=== PATIENT | female | born 1985 | race African-American/Black ===

== ENCOUNTER 2016-07-11 12:56 | Emergency (ER) | payer OTHER ==
[~2016-07-11 12:56] MED LIST: ZOLOFT
== END 2016-07-11 19:12 | disposition left against medical advice (07) ==
LOC: ER 12:56
DX: R04.0 Epistaxis (principal); Z53.21 Procedure and treatment not carried out due to patient leaving prior to being seen by health care provider

== ENCOUNTER 2018-09-08 18:55 | Emergency (ER) | payer OTHER ==
[~2018-09-08] VITALS: Ht 165.1 cm; Wt 63.0 kg
[~2018-09-08 18:55] MED LIST changes: +FERR-71 PO; -ZOLOFT
[2018-09-08] MEDS ORDERED: SODIUM CHLORIDE 0.9% 500 ML IV ONE (22:15)
[2018-09-08 22:30] LABS: CLARITY URINE CLEAR (CLEAR); COLOR URINE YELLOW (YELLOW); KETONES URINE NEGATIVE (NEGATIVE); LEUKOCYTE ESTERASE URINE 2+ (NEGATIVE); NITRITE URINE NEGATIVE (NEGATIVE); OCCULT BLOOD URINE 2+ (NEGATIVE); PROTEIN URINE NEGATIVE (NEGATIVE); SPECIFIC GRAVITY URINE 1.002 (1.005-1.030); UROBILINOGEN URINE 0.2 E.U./dL (0.2-1.0)
[2018-09-08 22:50] LABS: CHLORIDE 108 mEq/L (98-107)
[2018-09-08 23:00] LABS: MEAN CORPUSCULAR HEMOGLOBIN 23.3 pg (28.0-32.0); MEAN CORPUSCULAR VOLUME 77.7 fL (81.0-99.0); MEAN PLATELET VOLUME 7.2 fl (7.4-10.4); PLATELET 293 x1000/uL (130-400); RED CELL DISTRIBUTION WIDTH 32.2 % (11.6-14.6)
[2018-09-08] MEDS ORDERED: ONDANSETRON HCL 4MG/2ML INJ IV ONE (23:00)
[2018-09-08 23:03] LABS: HEMATOCRIT. 20.2 % (36.0-48.0); HEMOGLOBIN. 6.1 g/dL (12.0-16.0)
[2018-09-08 23:39] LABS: PLATELET ESTIMATE NORMAL
[2018-09-09 03:07] VITALS: BP 129/90
== END 2018-09-09 04:09 | disposition home or self-care (01) ==
LOC: ER 18:55
DX: D64.9 Anemia, unspecified (principal); D25.9 Leiomyoma of uterus, unspecified; G62.9 Polyneuropathy, unspecified; F17.200 Nicotine dependence, unspecified, uncomplicated; Z88.5 Allergy status to narcotic agent; Z79.899 Other long term (current) drug therapy
CPT/HCPCS: 36415; 80053; 81003; 84484; 85025; 86850; 86900; 86901; 86920; 93005; 99285; J7040; 99284; J2405; P9016

== ENCOUNTER 2019-11-21 10:50 | Inpatient (IN) | payer MEDICAID, OTHER ==
[2019-11-21] VITALS: BP 126/88
[~2019-11-21] VITALS: Ht 165.1 cm; Wt 68.9 kg
[2019-11-21] MEDS ORDERED: SODIUM CHLORIDE 0.9% 1,000 ML IV ONE (11:45)
[2019-11-21 11:54] LABS: CHLORIDE 109 mEq/L (98-107)
[2019-11-21 11:57] LABS: MEAN CORPUSCULAR HEMOGLOBIN 22.1 pg (28.0-32.0); MEAN CORPUSCULAR VOLUME 77.2 fL (81.0-99.0); MEAN PLATELET VOLUME 8.5 fl (7.4-10.4); RED CELL DISTRIBUTION WIDTH 30.6 % (11.6-14.6)
[2019-11-21 11:58] LABS: INR 1.1; PROTHROMBIN TIME 11.6 sec (9.6-11.0)
[2019-11-21 12:01] LABS: HCG SCREEN NEGATIVE
[2019-11-21 12:07] LABS: HEMOGLOBIN. 2.9 g/dL (12.0-16.0)
[2019-11-21 12:27] LABS: PLATELET ESTIMATE MARKEDLY DECREASED
[2019-11-21 12:29] LABS: PLATELET 19 x1000/uL (130-400)
[2019-11-21 14:08] LABS: HEMOGLOBIN 2.5 g/dL (12.0-16.0)
[2019-11-21 14:09] LABS: HEMATOCRIT 8.6 % (36.0-48.0)
[2019-11-21] MEDS ORDERED: ACETAMINOPHEN 650MG SUPP PR PRN (15:15)
[2019-11-21] MEDS ORDERED: ONDANSETRON HCL 4MG/2ML INJ IV PRN (15:15)
[2019-11-21] MEDS ORDERED: IPRATROPIUM/ALBUTEROL 0.5-3(2.5)MG/3ML NEB NEB PRN (15:15)
[2019-11-21] MEDS ORDERED: LORAZEPAM 0.5MG TABLET PO PRN (15:15)
[2019-11-21 17:09] LABS: HEPATITIS B SURFACE ANTIGEN NEGATIVE
[2019-11-21 17:39] LABS: HEPATITIS A AB IGM NEGATIVE (NEGATIVE)
[2019-11-21] MEDS: DEXT 5%/0.45% NACL 1000ML 1,000 ML IV SCH (19:05)
[2019-11-21] MEDS: PANTOPRAZOLE SODIUM 40 MG/VIAL IV SCH (19:05)
[2019-11-21] MEDS ORDERED: DIPHENHYDRAMINE 25MG CAPSULE PO ONE (22:15)
[2019-11-21 22:20] LABS: MEAN CORPUSCULAR HEMOGLOBIN 27.5 pg (28.0-32.0); MEAN CORPUSCULAR VOLUME 84.3 fL (81.0-99.0); RED CELL DISTRIBUTION WIDTH 21.2 % (11.6-14.6)
[2019-11-21 22:27] LABS: HEMATOCRIT 20.3 % (36.0-48.0); HEMOGLOBIN 6.6 g/dL (12.0-16.0)
[2019-11-21 22:28] LABS: PLATELET 21 x1000/uL (130-400)
[2019-11-21 22:30] LABS: INR 1.1; PROTHROMBIN TIME 11.9 sec (9.6-11.0)
[2019-11-21 23:14] LABS: CLARITY URINE CLOUDY (CLEAR); COLOR URINE ORANGE (YELLOW); KETONES URINE NEGATIVE (NEGATIVE); LEUKOCYTE ESTERASE URINE 1+ (NEGATIVE); NITRITE URINE NEGATIVE (NEGATIVE); OCCULT BLOOD URINE 3+ (NEGATIVE); PROTEIN URINE 1+ (NEGATIVE); SPECIFIC GRAVITY URINE 1.019 (1.005-1.030); UROBILINOGEN URINE 0.2 E.U./dL (0.2-1.0)
[2019-11-21 23:25] LABS: *AMPHETAMINES SCREEN URINE NEGATIVE (NEGATIVE); *BARBITURATES SCREEN URINE NEGATIVE (NEGATIVE); *BENZODIAZEPINES SCREEN URINE NEGATIVE (NEGATIVE); *COCAINE SCREEN URINE NEGATIVE (NEGATIVE); METHADONE URINE SCREEN NEGATIVE (NEGATIVE); OPIATES URINE SCREEN NEGATIVE (NEGATIVE)
[2019-11-21 23:26] LABS: CANNABINOID URINE SCREEN NEGATIVE (NEGATIVE); PHENCYCLIDINE URINE SCREEN NEGATIVE (NEGATIVE)
[2019-11-21 23:45] VITALS: BP 126/88
[2019-11-22] VITALS (12 sets, daily range): BP systolic 125–144; BP diastolic 70–92
[2019-11-22] MEDS ORDERED: DIPHENHYDRAMINE 50MG/ML VIAL IV PRN (03:30)
[2019-11-22] MEDS ORDERED: LORAZEPAM 2MG/ML CPJ IV PRN (03:30)
[2019-11-22] MEDS: DEXT 5%/0.45% NACL 1000ML 1,000 ML IV SCH (04:35)
[2019-11-22] MEDS: PANTOPRAZOLE SODIUM 40 MG/VIAL IV SCH (09:28)
[2019-11-23 05:09] LABS: HIV SCREEN 4G Non Reactive (Non Reactive)
== END 2019-11-22 18:17 | disposition left against medical advice (07) | DRG 663 ==
LOC: ER 10:50 → 5EST 13:28 → SUPCPDRO 13:37 → EDBEDREQSVC 16:06 → ENRESERV 21:44
PROVIDERS: ADMIT Internal Medicine; ATTEND Internal Medicine
PROC: 30233R1 Transfusion of Nonautologous Platelets into Peripheral Vein, Percutaneous Approach (ICD-10-PCS; principal; 2019-11-21)
PROC: 30233N1 Transfusion of Nonautologous Red Blood Cells into Peripheral Vein, Percutaneous Approach (ICD-10-PCS; 2019-11-21)
DX: D50.0 Iron deficiency anemia secondary to blood loss (chronic) (principal); D69.6 Thrombocytopenia, unspecified; D25.9 Leiomyoma of uterus, unspecified; Z53.29 Procedure and treatment not carried out because of patient's decision for other reasons; J45.909 Unspecified asthma, uncomplicated; F17.210 Nicotine dependence, cigarettes, uncomplicated; R73.9 Hyperglycemia, unspecified; E80.6 Other disorders of bilirubin metabolism; F10.10 Alcohol abuse, uncomplicated; Y90.9 Presence of alcohol in blood, level not specified; R00.0 Tachycardia, unspecified; Z20.828 Contact with and (suspected) exposure to other viral communicable diseases; N93.9 Abnormal uterine and vaginal bleeding, unspecified
CPT/HCPCS: 36415; 76830; 76856; 80053; 80305; 80320; 81003; 84703; 85014; 85018; 85025; 85027; 85384; 86705; 86709; 86803; 86850; 86870; 86900; 86920; 86945; 87340; 87389; 93005; 99291; C9113; J2060; J2405; J7030; P9016; P9034; Q0163; G0480; U0003-CS

== ENCOUNTER 2020-07-13 13:01 | Emergency (ER) | payer MEDICAID, OTHER ==
[~2020-07-13] VITALS: Ht 167.6 cm; Wt 66.0 kg
[2020-07-13] MEDS ORDERED: SODIUM CHLORIDE 0.9% 1,000 ML IV ONE (13:30)
[2020-07-13 15:35] LABS: MEAN CORPUSCULAR HEMOGLOBIN 24.5 pg (28.0-32.0); MEAN CORPUSCULAR VOLUME 81.6 fL (81.0-99.0); MEAN PLATELET VOLUME 7.4 fl (7.4-10.4); PLATELET 243 x1000/uL (130-400); RED BLOOD CELL COUNT 1.97 mill/uL (4.2-5.4); RED CELL DISTRIBUTION WIDTH 25.4 % (11.6-14.6)
[2020-07-13 15:39] LABS: CHLORIDE 109 mEq/L (98-107)
[2020-07-13 15:40] LABS: INR 1.1
[2020-07-13 15:43] LABS: HCG SCREEN NEGATIVE; HEMATOCRIT. 16.1 % (36.0-48.0); HEMOGLOBIN. 4.8 g/dL (12.0-16.0)
[2020-07-13 16:00] LABS: ETHANOL BLOOD 352 mg/dL
[2020-07-13] MEDS ORDERED: METOCLOPRAMIDE HCL 5MG TABLET PO NR (16:30)
[2020-07-13 16:44] LABS: PLATELET ESTIMATE NORMAL
[2020-07-13] MEDS ORDERED: FOLIC ACID 1 MG, THIAMINE HCL 100 MG, MVI, ADULT NO.1 10 ML in DEXTROSE 5% WATER 1,000 ML IV NR (17:30)
[2020-07-13 17:31] LABS: TOTAL IRON BINDING CAPACITY 335 ug/dL (250-450)
[2020-07-14 03:07] VITALS: BP 95/56
== END 2020-07-14 03:59 | disposition short-term general hospital (02) ==
LOC: ER 13:01 → CANBEDREQ 07-14 15:45
DX: D64.9 Anemia, unspecified (principal); R53.1 Weakness; K70.10 Alcoholic hepatitis without ascites; F17.290 Nicotine dependence, other tobacco product, uncomplicated; F12.10 Cannabis abuse, uncomplicated; J45.909 Unspecified asthma, uncomplicated
CPT/HCPCS: 36415; 80053; 80320; 81025; 83540; 83550; 84703; 85025; 85610; 86850; 86870; 86900; 86901; 86920; 96365; 99285; J3411; J3490; J7030; J7070; J8597; P9016; G0480

== ENCOUNTER 2020-10-29 16:23 | Inpatient (IN) | payer OTHER ==
[~2020-10-29] VITALS: Ht 167.6 cm; Wt 71.0 kg
[2020-10-29 17:23] LABS: CHLORIDE 106 mEq/L (98-107)
[2020-10-29] MEDS ORDERED: FUROSEMIDE 20MG/2ML VIAL IVP ONE (17:30)
[2020-10-29 17:55] LABS: MEAN CORPUSCULAR HEMOGLOBIN 25.3 pg (28.0-32.0); MEAN CORPUSCULAR VOLUME 88.9 fL (81.0-99.0); MEAN PLATELET VOLUME 7.6 fl (7.4-10.4); PLATELET 608 x1000/uL (130-400); RED BLOOD CELL COUNT 1.19 mill/uL (4.2-5.4); RED CELL DISTRIBUTION WIDTH 28.6 % (11.6-14.6)
[2020-10-29 17:57] LABS: HEMATOCRIT. 10.6 % (36.0-48.0)
[2020-10-29 18:36] LABS: PLATELET ESTIMATE INCREASED
[2020-10-29] MEDS ORDERED: ACETAMINOPHEN 325MG TABLET PO ONE (20:15)
[2020-10-30] VITALS (17 sets, daily range): BP systolic 94–134; BP diastolic 59–78
[2020-10-30] MEDS ORDERED: DEXT 5%/0.45% NACL 1000ML 1,000 ML IV SCH (06:00)
[2020-10-30 06:29] LABS: BASOPHILS % 0.6 % (0.0-2.0); EOSINOPHILS % 1.2 % (0.0-5.0); LYMPHOCYTES % 8.2 % (20.0-50.0); MEAN CORPUSCULAR HEMOGLOBIN 30.2 pg (28.0-32.0); MEAN CORPUSCULAR VOLUME 89.3 fL (81.0-99.0); MEAN PLATELET VOLUME 7.6 fl (7.4-10.4); MONOCYTES % 11.3 % (2.0-8.0); NEUTROPHILS % 78.7 % (40.0-76.0); PLATELET 522 x1000/uL (130-400); RED BLOOD CELL COUNT 1.79 mill/uL (4.2-5.4); RED CELL DISTRIBUTION WIDTH 20.5 % (11.6-14.6)
[2020-10-30 06:45] LABS: CHLORIDE 108 mEq/L (98-107)
[2020-10-30 06:59] LABS: HEMOGLOBIN. 5.4 g/dL (12.0-16.0)
[2020-10-30] MEDS ORDERED: PANTOPRAZOLE 40MG DR TABLET PO SCH ×2 (07:30→09:00)
[2020-10-30] MEDS ORDERED: DIPHENHYDRAMINE 50MG/ML VIAL IV PRN (08:00)
[2020-10-30] MEDS ORDERED: ALPRAZOLAM 0.25 MG TABLET PO PRN (08:00)
[2020-10-30 09:29] LABS: HEMOGLOBIN 6.4 g/dL (12.0-16.0)
[2020-10-30 09:30] LABS: HEMATOCRIT 19.8 % (36.0-48.0)
[2020-10-30] MEDS ORDERED: ACETAMINOPHEN 325MG TABLET PO PRN (11:30)
[2020-10-30] MEDS ORDERED: HYDRALAZINE 20MG/ML VIAL IV PRN (11:30)
[2020-10-30] MEDS ORDERED: ACETAMINOPHEN 650MG SUPP PR PRN (11:30)
[2020-10-30] MEDS ORDERED: BISACODYL 10MG SUPP PR PRN (11:30)
[2020-10-30] MEDS ORDERED: ONDANSETRON HCL 4MG/2ML INJ IV PRN (11:30)
[2020-10-30] MEDS ORDERED: IPRATROPIUM/ALBUTEROL 0.5-3(2.5)MG/3ML NEB HHN PRN (11:30)
[2020-10-30] MEDS ORDERED: POTASSIUM CHLORIDE INJ 40 MEQ in DEXT 5% WATER 250 ML IV SCH (12:00)
[2020-10-30] MEDS ORDERED: CEFTRIAXONE 1,000 MG in DEXTROSE 5% WATER 50 ML IV SCH (13:00)
[2020-10-30 13:23] LABS: INR 1.3
[2020-10-30 15:50] LABS: TOTAL IRON BINDING CAPACITY 247 ug/dL (250-450)
[2020-11-05 04:07] LABS: BARBITURATE SCREEN Negative ug/mL (Cutoff:0.1); BENZODIAZEPINE SCREEN Negative ng/mL (Cutoff:20); OPIATES SCREEN Negative ng/mL (Cutoff:5); PHENCYCLIDINE SCREEN Negative ng/mL (Cutoff:8)
== END 2020-10-30 18:24 | disposition left against medical advice (07) | DRG 532 ==
LOC: ER 16:26 → 5EST 21:19 → ENRESERV 22:14
PROVIDERS: ADMIT Internal Medicine; ATTEND Internal Medicine
PROC: 30233N1 Transfusion of Nonautologous Red Blood Cells into Peripheral Vein, Percutaneous Approach (ICD-10-PCS; principal; 2020-10-29)
DX: N92.0 Excessive and frequent menstruation with regular cycle (principal); R65.10 Systemic inflammatory response syndrome (SIRS) of non-infectious origin without acute organ dysfunction; E87.1 Hypo-osmolality and hyponatremia; D50.0 Iron deficiency anemia secondary to blood loss (chronic); F10.10 Alcohol abuse, uncomplicated; D72.829 Elevated white blood cell count, unspecified; E80.6 Other disorders of bilirubin metabolism; E87.6 Hypokalemia; J45.909 Unspecified asthma, uncomplicated; Y90.9 Presence of alcohol in blood, level not specified; F17.210 Nicotine dependence, cigarettes, uncomplicated; Z53.29 Procedure and treatment not carried out because of patient's decision for other reasons; Z88.5 Allergy status to narcotic agent
CPT/HCPCS: 36415; 71045; 80053; 80307; 83540; 83550; 83735; 83880; 84443; 84484; 85014; 85018; 85025; 86850; 86870; 86900; 86920; 87426; 93005; 99285; J0696; J1200; J1940; J3480; J7060; P9016

== ENCOUNTER 2021-06-08 13:58 | Inpatient (IN) | payer OTHER ==
[~2021-06-08] VITALS: Ht 162.6 cm; Wt 80.0 kg
[2021-06-08] MEDS ORDERED: SODIUM CHLORIDE 0.9% 1,000 ML IV ONE (14:15)
[2021-06-08 14:41] LABS: MEAN CORPUSCULAR HEMOGLOBIN 20.6 pg (28.0-32.0); MEAN CORPUSCULAR VOLUME 76.5 fL (81.0-99.0); MEAN PLATELET VOLUME 7.5 fl (7.4-10.4); RED CELL DISTRIBUTION WIDTH 23.7 % (11.6-14.6)
[2021-06-08 14:48] LABS: CHLORIDE 109 mEq/L (98-107)
[2021-06-08 14:52] LABS: ETHANOL BLOOD 224 mg/dL; HEMOGLOBIN. 3.5 g/dL (12.0-16.0)
[2021-06-08 14:53] LABS: PLATELET 30 x1000/uL (130-400)
[2021-06-08 14:55] LABS: HCG SCREEN NEGATIVE; INR 1.2; PROTHROMBIN TIME 12.9 sec (9.6-11.0)
[2021-06-08] MEDS ORDERED: ACETAMINOPHEN 325MG TABLET PO ONE (15:00)
[2021-06-08 16:40] LABS: PLATELET ESTIMATE MARKEDLY DECREASED
[2021-06-08 22:24] LABS: CLARITY URINE TURBID (CLEAR); COLOR URINE RED (YELLOW); KETONES URINE NEGATIVE (NEGATIVE); LEUKOCYTE ESTERASE URINE 2+ (NEGATIVE); NITRITE URINE POSITIVE (NEGATIVE); OCCULT BLOOD URINE 3+ (NEGATIVE); PROTEIN URINE 3+ (NEGATIVE); SPECIFIC GRAVITY URINE 1.017 (1.005-1.030)
[2021-06-09 00:15] LABS: BASOPHILS % 1.4 % (0.0-2.0); EOSINOPHILS % 0.4 % (0.0-5.0); LYMPHOCYTES % 22.2 % (20.0-50.0); MEAN CORPUSCULAR HEMOGLOBIN 25.3 pg (28.0-32.0); MEAN CORPUSCULAR VOLUME 80.5 fL (81.0-99.0); MEAN PLATELET VOLUME 8.5 fl (7.4-10.4); MONOCYTES % 10.1 % (2.0-8.0); NEUTROPHILS % 65.9 % (40.0-76.0); RED BLOOD CELL COUNT 2.32 mill/uL (4.2-5.4); RED CELL DISTRIBUTION WIDTH 20.3 % (11.6-14.6)
[2021-06-09] MEDS ORDERED: TEMAZEPAM 15MG CAPSULE PO PRN (00:15)
[2021-06-09 00:19] LABS: HEMATOCRIT. 18.7 % (36.0-48.0); HEMOGLOBIN. 5.9 g/dL (12.0-16.0)
[2021-06-09 00:20] LABS: PLATELET 31 x1000/uL (130-400)
[2021-06-09] MEDS ORDERED: ACETAMINOPHEN 650MG SUPP PR PRN (10:45)
[2021-06-09] MEDS ORDERED: LORAZEPAM 2MG/ML CPJ IV PRN (10:45)
[2021-06-09] MEDS ORDERED: IPRATROPIUM/ALBUTEROL 0.5-3(2.5)MG/3ML NEB NEB PRN (10:45)
[2021-06-09] MEDS ORDERED: ONDANSETRON HCL 4MG/2ML INJ IV PRN (10:45)
[2021-06-09] MEDS ORDERED: FAMOTIDINE 20MG/2ML VIAL IV SCH (10:59)
[2021-06-09 11:23] LABS: BG BASE EXCESS -7.5 mmol/L (-2.0-2.0); BG CARBOXYHEMOGLOBIN 0.3 % (0.5-1.5); BG DEOXYHEMOGLOBIN 2.6 % (0.0-5.0); BG FRACTION INSPIRED OXYGEN 21; BG HCO3 ACT 16.4 mmol/L (22.0-26.0); BG METHEMOGLOBIN 0.7 % (0.0-1.5); BG OXYGEN SATURATION 97.4 % (92.0-98.5); BG OXYHEMOGLOBIN 96.4 % (94.0-97.0); BG PCO2 26.8 mmHg (35.0-45.0); BG PH 7.404 (7.350-7.450); BG PO2 103.3 mmHg (75.0-100.0); BG SAMPLE SITE RIGHT RADIAL; BG TOTAL HEMOGLOBIN 7.6 g/dL (12.0-18.0); BG VENT MODE ROOM AIR
[2021-06-09] MEDS ORDERED: CEFTRIAXONE 1 G PREMIX 50 ML IV SCH (11:30)
[2021-06-09 11:34] LABS: BASOPHILS % 1.5 % (0.0-2.0); EOSINOPHILS % 0.9 % (0.0-5.0); HEMATOCRIT. 22.7 % (36.0-48.0); HEMOGLOBIN. 7.6 g/dL (12.0-16.0); LYMPHOCYTES % 13.9 % (20.0-50.0); MEAN CORPUSCULAR HEMOGLOBIN 27.4 pg (28.0-32.0); MEAN CORPUSCULAR VOLUME 81.8 fL (81.0-99.0); MEAN PLATELET VOLUME 8.5 fl (7.4-10.4); MONOCYTES % 8.4 % (2.0-8.0); NEUTROPHILS % 75.3 % (40.0-76.0); RED BLOOD CELL COUNT 2.78 mill/uL (4.2-5.4); RED CELL DISTRIBUTION WIDTH 19.5 % (11.6-14.6)
[2021-06-09 11:41] LABS: HCG SCREEN NEGATIVE
[2021-06-09 12:09] LABS: PLATELET ESTIMATE MARKEDLY DECREASED
[2021-06-09 12:10] LABS: PLATELET 27 x1000/uL (130-400)
[2021-06-09 12:49] LABS: CHLORIDE 111 mEq/L (98-107)
[2021-06-09] MEDS ORDERED: DEXT 5%/0.45% NACL 1000ML 1,000 ML IV SCH ×2 (13:45→14:30)
[2021-06-09] MEDS ORDERED: HYDROCODONE/ACETAMINOPHEN 5/325MG TABLET PO PRN (13:45)
[2021-06-09 15:14] VITALS: BP 110/72
[2021-06-09] MEDS ORDERED: FOLIC ACID 1 MG, THIAMINE HCL 100 MG, MVI, ADULT NO.1 10 ML in DEXTROSE 5% WATER 1,000 ML IV NR ×4 (16:00)
[2021-06-10] MEDS ORDERED: DEXT 5%/0.45% NACL 1000ML 1,000 ML IV SCH (02:00)
[2021-06-10] MEDS ORDERED: IBUP1CAP13 PO (11:22)
== END 2021-06-09 18:03 | disposition left against medical advice (07) | DRG 532 ==
LOC: ER 13:58 → MICUSO 18:53 → EDBEDREQTM 19:18 → EDBEDREQ 19:18
PROVIDERS: ADMIT Internal Medicine; ATTEND Internal Medicine
PROC: 30233N1 Transfusion of Nonautologous Red Blood Cells into Peripheral Vein, Percutaneous Approach (ICD-10-PCS; principal; 2021-06-08)
DX: D25.9 Leiomyoma of uterus, unspecified (principal); D69.6 Thrombocytopenia, unspecified; E80.6 Other disorders of bilirubin metabolism; E86.0 Dehydration; F10.10 Alcohol abuse, uncomplicated; D50.0 Iron deficiency anemia secondary to blood loss (chronic); F17.210 Nicotine dependence, cigarettes, uncomplicated; F31.9 Bipolar disorder, unspecified; J45.909 Unspecified asthma, uncomplicated; N39.0 Urinary tract infection, site not specified; R74.01 Elevation of levels of liver transaminase levels; Z88.6 Allergy status to analgesic agent; Z79.899 Other long term (current) drug therapy; Z71.41 Alcohol abuse counseling and surveillance of alcoholic
CPT/HCPCS: 36415; 36430; 36600; 71045; 76830; 76856; 80053; 80320; 81003; 82375; 82805; 83880; 84145; 84484; 84703; 85025; 86850; 86870; 86900; 86920; 93005; 99291; J0696; J3411; J3490; J7030; J7070; P9016; G0480

== ENCOUNTER 2021-06-09 21:23 | Inpatient (IN) | payer OTHER ==
[~2021-06-09] VITALS: Ht 167.6 cm; Wt 67.6 kg
[2021-06-09 23:44] LABS: CHLORIDE 109 mEq/L (98-107)
[2021-06-09 23:47] LABS: INR 1.2; PROTHROMBIN TIME 12.8 sec (9.6-11.0)
[2021-06-09 23:48] LABS: ETHANOL BLOOD 188 mg/dL; HEMATOCRIT. 22.6 % (36.0-48.0); HEMOGLOBIN. 7.2 g/dL (12.0-16.0); MEAN CORPUSCULAR VOLUME 84.4 fL (81.0-99.0); RED BLOOD CELL COUNT 2.68 mill/uL (4.2-5.4); RED CELL DISTRIBUTION WIDTH 19.4 % (11.6-14.6)
[2021-06-09 23:49] LABS: MEAN PLATELET VOLUME 8.3 fl (7.4-10.4); PLATELET 39 x1000/uL (130-400)
[2021-06-09 23:50] LABS: HCG SCREEN NEGATIVE
[2021-06-10] VITALS (8 sets, daily range): BP systolic 102–126; BP diastolic 50–71
[2021-06-10 01:02] LABS: PLATELET ESTIMATE DECREASED
[2021-06-10] MEDS ORDERED: SODIUM CHLORIDE 0.9% 250 ML IV ONE (01:30)
[2021-06-10] MEDS ORDERED: IBUP1CAP13 PO (11:22)
[2021-06-10] MEDS ORDERED: HYDROCODONE/ACETAMINOPHEN 5/325MG TABLET PO PRN (11:45)
[2021-06-10] MEDS ORDERED: NA PHOS,M-B/NA PHOS,DI-BA ENEMA 118ML PR PRN (11:45)
[2021-06-10] MEDS ORDERED: ACETAMINOPHEN 650MG/20.3ML UDC GT PRN (11:45)
[2021-06-10] MEDS ORDERED: IPRATROPIUM/ALBUTEROL 0.5-3(2.5)MG/3ML NEB NEB PRN (11:45)
[2021-06-10] MEDS ORDERED: DIPHENHYDRAMINE 50MG/ML VIAL IV PRN (11:45)
[2021-06-10] MEDS ORDERED: DOCUSATE SODIUM 100MG CAPSULE PO PRN (11:45)
[2021-06-10] MEDS ORDERED: ONDANSETRON HCL 4MG/2ML INJ IV PRN (11:45)
[2021-06-10] MEDS ORDERED: GUAIFENESIN 200MG/10ML SUGAR FREE UDC PO PRN (11:45)
[2021-06-10] MEDS ORDERED: NALOXONE HCL 0.4MG/ML VIAL IV PRN (12:30)
[2021-06-10 13:30] LABS: CHLORIDE 111 mEq/L (98-107)
[2021-06-10 13:35] LABS: BASOPHILS % 0.7 % (0.0-2.0); EOSINOPHILS % 0.9 % (0.0-5.0); LYMPHOCYTES % 13.8 % (20.0-50.0); MEAN CORPUSCULAR HEMOGLOBIN 27.5 pg (28.0-32.0); MEAN CORPUSCULAR VOLUME 86.2 fL (81.0-99.0); MEAN PLATELET VOLUME 8.8 fl (7.4-10.4); MONOCYTES % 11.2 % (2.0-8.0); NEUTROPHILS % 73.4 % (40.0-76.0); RED BLOOD CELL COUNT 1.89 mill/uL (4.2-5.4); RED CELL DISTRIBUTION WIDTH 18.8 % (11.6-14.6)
[2021-06-10 13:54] LABS: HEMATOCRIT. 16.3 % (36.0-48.0); HEMOGLOBIN. 5.2 g/dL (12.0-16.0); PLATELET 27 x1000/uL (130-400)
[2021-06-10 14:15] LABS: HCG SCREEN NEGATIVE
[2021-06-10] MEDS ORDERED: FOLIC ACID 1 MG, THIAMINE HCL 100 MG, MVI, ADULT NO.1 10 ML in DEXTROSE 5% WATER 1,000 ML IV ONE ×4 (15:00)
[2021-06-10] MEDS ORDERED: DEXT 5%/0.45% NACL 1000ML 1,000 ML IV SCH (17:15)
[2021-06-10] MEDS: PIPERACILLIN/TAZOBACTAM 3.375 G in DEXTROSE 5% WATER 50 ML IV SCH (17:38)
[2021-06-10 19:00] LABS: BASOPHILS % 0.6 % (0.0-2.0); MEAN CORPUSCULAR VOLUME 87.8 fL (81.0-99.0); MONOCYTES % 11.9 % (2.0-8.0); NEUTROPHILS % 74.5 % (40.0-76.0); RED BLOOD CELL COUNT 1.66 mill/uL (4.2-5.4); RED CELL DISTRIBUTION WIDTH 19.1 % (11.6-14.6)
[2021-06-10 19:06] LABS: HEMATOCRIT. 14.6 % (36.0-48.0); HEMOGLOBIN. 4.8 g/dL (12.0-16.0); PLATELET 26 x1000/uL (130-400)
[2021-06-11] VITALS (15 sets, daily range): BP systolic 95–130; BP diastolic 48–80
[2021-06-11] MEDS: PIPERACILLIN/TAZOBACTAM 3.375 G in DEXTROSE 5% WATER 50 ML IV SCH ×4 (00:36→23:43)
[2021-06-11 05:15] LABS: BASOPHILS % 0.8 % (0.0-2.0); EOSINOPHILS % 1.3 % (0.0-5.0); LYMPHOCYTES % 16.7 % (20.0-50.0); MEAN CORPUSCULAR HEMOGLOBIN 30.2 pg (28.0-32.0); MEAN CORPUSCULAR VOLUME 91.6 fL (81.0-99.0); MEAN PLATELET VOLUME 8.8 fl (7.4-10.4); MONOCYTES % 11.4 % (2.0-8.0); NEUTROPHILS % 69.8 % (40.0-76.0); RED BLOOD CELL COUNT 2.32 mill/uL (4.2-5.4); RED CELL DISTRIBUTION WIDTH 16.9 % (11.6-14.6)
[2021-06-11 05:20] LABS: HEMATOCRIT. 21.2 % (36.0-48.0)
[2021-06-11 05:23] LABS: CHLORIDE 112 mEq/L (98-107)
[2021-06-11 11:48] LABS: PLATELET ESTIMATE MARKEDLY DECREASED
[2021-06-11 11:49] LABS: PLATELET 31 x1000/uL (130-400)
[2021-06-11] MEDS: LORAZEPAM 0.5MG TABLET PO PRN (12:49)
[2021-06-11 13:26] LABS: BASOPHILS % 0.5 % (0.0-2.0); EOSINOPHILS % 0.5 % (0.0-5.0); LYMPHOCYTES % 7.6 % (20.0-50.0); MEAN CORPUSCULAR HEMOGLOBIN 28.9 pg (28.0-32.0); MEAN CORPUSCULAR VOLUME 86.3 fL (81.0-99.0); MEAN PLATELET VOLUME 9.2 fl (7.4-10.4); MONOCYTES % 8.3 % (2.0-8.0); NEUTROPHILS % 83.1 % (40.0-76.0); RED BLOOD CELL COUNT 2.28 mill/uL (4.2-5.4); RED CELL DISTRIBUTION WIDTH 16.7 % (11.6-14.6)
[2021-06-11 13:27] LABS: CHLORIDE 106 mEq/L (98-107)
[2021-06-11 13:35] LABS: HEMATOCRIT. 19.7 % (36.0-48.0); HEMOGLOBIN. 6.6 g/dL (12.0-16.0)
[2021-06-11 14:10] LABS: PLATELET 44 x1000/uL (130-400)
[2021-06-11 14:47] LABS: HAPTOGLOBIN 53 mg/dL (30-200)
[2021-06-11] MEDS: DEXT 5%/0.9% NACL 1,000 ML IV SCH ×2 (15:00→16:09)
[2021-06-11 17:43] LABS: CLARITY URINE CLOUDY (CLEAR); COLOR URINE ORANGE (YELLOW); KETONES URINE NEGATIVE (NEGATIVE); LEUKOCYTE ESTERASE URINE 2+ (NEGATIVE); NITRITE URINE POSITIVE (NEGATIVE); OCCULT BLOOD URINE 3+ (NEGATIVE); PROTEIN URINE 2+ (NEGATIVE); SPECIFIC GRAVITY URINE 1.021 (1.005-1.030)
[2021-06-12] VITALS (11 sets, daily range): BP systolic 92–126; BP diastolic 48–83
[2021-06-12] MEDS: DEXT 5%/0.9% NACL 1,000 ML IV SCH ×2 (03:51→16:24)
[2021-06-12] MEDS: PIPERACILLIN/TAZOBACTAM 3.375 G in DEXTROSE 5% WATER 50 ML IV SCH ×2 (06:13→14:30)
[2021-06-12 07:37] LABS: BASOPHILS % 0.5 % (0.0-2.0); EOSINOPHILS % 0.6 % (0.0-5.0); MEAN CORPUSCULAR VOLUME 89.6 fL (81.0-99.0); MEAN PLATELET VOLUME 8.3 fl (7.4-10.4); NEUTROPHILS % 81.9 % (40.0-76.0); PLATELET 63 x1000/uL (130-400); RED BLOOD CELL COUNT 2.27 mill/uL (4.2-5.4); RED CELL DISTRIBUTION WIDTH 15.7 % (11.6-14.6)
[2021-06-12 07:42] LABS: CHLORIDE 105 mEq/L (98-107)
[2021-06-12 08:26] LABS: HEMATOCRIT. 20.3 % (36.0-48.0)
[2021-06-12] MEDS ORDERED: THIAMINE HCL 100MG TABLET PO SCH (09:00)
[2021-06-12] MEDS ORDERED: FOLIC ACID 1MG TABLET PO SCH (09:00)
[2021-06-12] MEDS ORDERED: MULTIVITAMINS,THER W-MINERALS TABLET PO SCH (09:00)
[2021-06-12] MEDS: LORAZEPAM 0.5MG TABLET PO PRN (11:00)
[2021-06-12 20:44] LABS: HEMATOCRIT 21.6 % (36.0-48.0); HEMOGLOBIN 7.5 g/dL (12.0-16.0)
== END 2021-06-12 19:20 | disposition left against medical advice (07) | DRG 532 ==
LOC: ER 21:23 → 8WST 06-10 05:27
PROVIDERS: ADMIT Internal Medicine; ATTEND Internal Medicine
PROC: 30233N1 Transfusion of Nonautologous Red Blood Cells into Peripheral Vein, Percutaneous Approach (ICD-10-PCS; 2021-06-10)
PROC: 30233K1 Transfusion of Nonautologous Frozen Plasma into Peripheral Vein, Percutaneous Approach (ICD-10-PCS; principal; 2021-06-11)
PROC: 30233R1 Transfusion of Nonautologous Platelets into Peripheral Vein, Percutaneous Approach (ICD-10-PCS; 2021-06-11)
DX: D25.9 Leiomyoma of uterus, unspecified (principal); D69.6 Thrombocytopenia, unspecified; K80.00 Calculus of gallbladder with acute cholecystitis without obstruction; D50.0 Iron deficiency anemia secondary to blood loss (chronic); D72.829 Elevated white blood cell count, unspecified; F10.10 Alcohol abuse, uncomplicated; F17.210 Nicotine dependence, cigarettes, uncomplicated; E80.6 Other disorders of bilirubin metabolism; E86.0 Dehydration; Y90.6 Blood alcohol level of 120-199 mg/100 ml; R74.01 Elevation of levels of liver transaminase levels; Z88.6 Allergy status to analgesic agent
CPT/HCPCS: 36415; 36430; 71045; 74181; 76700; 78227; 80053; 80320; 81003; 83010; 83615; 83880; 84703; 85014; 85018; 85025; 85044; 86304; 86850; 86870; 86900; 86920; 86927; 93005; 99291; A9537; J2543; J3411; J3490; J7030; J7042; J7060; J7070; P9016; P9017; G0480; P9035

== ENCOUNTER 2021-10-30 11:34 | Inpatient (IN) | payer OTHER ==
[~2021-10-30] VITALS: Ht 165.1 cm; Wt 60.8 kg
[~2021-10-30 11:34] MED LIST changes: +IBUP1CAP13 PO
[2021-10-30 14:25] LABS: MEAN PLATELET VOLUME 8.5 fl (7.4-10.4); RED BLOOD CELL COUNT 1.94 mill/uL (4.2-5.4)
[2021-10-30 14:28] LABS: HEMOGLOBIN. 4.5 g/dL (12.0-16.0)
[2021-10-30 14:29] LABS: PLATELET 37 x1000/uL (130-400)
[2021-10-30 14:31] LABS: CHLORIDE 108 mEq/L (98-107)
[2021-10-30 14:40] LABS: B-HCG QUANTITATIVE < 1 mIU/mL (<3)
[2021-10-30 14:49] LABS: PLATELET ESTIMATE MARKEDLY DECREASED
[2021-10-30 18:54] LABS: INR 1.2; PROTHROMBIN TIME 12.8 sec (9.6-11.0)
[2021-10-30 20:00] VITALS: BP 118/77
[2021-10-30 20:52] VITALS: BP 106/69
[2021-10-30 21:00] VITALS: BP 118/77
[2021-10-30 21:07] VITALS: BP 111/70
[2021-10-30] MEDS ORDERED: ACETAMINOPHEN 325MG TABLET PO PRN (21:30)
[2021-10-30] MEDS ORDERED: ZOLPIDEM TARTRATE 5MG TABLET PO PRN (21:30)
[2021-10-30 22:07] VITALS: BP 114/82
[2021-10-30 23:07] VITALS: BP 123/87
[2021-10-31] VITALS (15 sets, daily range): BP systolic 100–148; BP diastolic 61–97
[2021-10-31 06:20] LABS: HEMATOCRIT. 15.1 % (36.0-48.0)
[2021-10-31 08:28] LABS: BASOPHILS % 1.1 % (0.0-2.0); EOSINOPHILS % 0.9 % (0.0-5.0); HEMATOCRIT. 21.2 % (36.0-48.0); LYMPHOCYTES % 12.3 % (20.0-50.0); MEAN CORPUSCULAR HEMOGLOBIN 27.8 pg (28.0-32.0); MEAN CORPUSCULAR VOLUME 86.5 fL (81.0-99.0); MEAN PLATELET VOLUME 8.5 fl (7.4-10.4); NEUTROPHILS % 72.7 % (40.0-76.0); RED BLOOD CELL COUNT 2.45 mill/uL (4.2-5.4); RED CELL DISTRIBUTION WIDTH 24.5 % (11.6-14.6)
[2021-10-31 08:31] LABS: CHLORIDE 108 mEq/L (98-107)
[2021-10-31 08:37] LABS: HEMOGLOBIN. 6.8 g/dL (12.0-16.0)
[2021-10-31 08:38] LABS: PLATELET 34 x1000/uL (130-400)
[2021-10-31] MEDS ORDERED: DOCUSATE SODIUM 250MG CAPSULE PO SCH (10:30)
[2021-10-31] MEDS: FERROUS SULFATE 325MG TABLET PO SCH ×2 (11:52→18:25)
[2021-10-31] MEDS ORDERED: LORAZEPAM 0.5MG TABLET PO NR (12:45)
[2021-10-31 18:56] LABS: BASOPHILS % 0.6 % (0.0-2.0); EOSINOPHILS % 0.2 % (0.0-5.0); HEMATOCRIT. 27.4 % (36.0-48.0); HEMOGLOBIN. 8.8 g/dL (12.0-16.0); LYMPHOCYTES % 12.8 % (20.0-50.0); MEAN CORPUSCULAR HEMOGLOBIN 27.9 pg (28.0-32.0); MEAN CORPUSCULAR VOLUME 87.5 fL (81.0-99.0); MEAN PLATELET VOLUME 9.1 fl (7.4-10.4); MONOCYTES % 13.2 % (2.0-8.0); NEUTROPHILS % 73.2 % (40.0-76.0); PLATELET 55 x1000/uL (130-400); RED BLOOD CELL COUNT 3.14 mill/uL (4.2-5.4); RED CELL DISTRIBUTION WIDTH 22.3 % (11.6-14.6)
[2021-10-31 22:48] LABS: PLATELET ESTIMATE DECREASED
== END 2021-10-31 19:50 | disposition left against medical advice (07) | DRG 532 ==
LOC: ER 12:52 → 6EST 16:51 → EDBEDREQ 17:04 → EDBEDREQTM 17:04 → ENRESERV 17:24
PROVIDERS: ADMIT Internal Medicine; ATTEND Internal Medicine
PROC: 30233N1 Transfusion of Nonautologous Red Blood Cells into Peripheral Vein, Percutaneous Approach (ICD-10-PCS; principal; 2021-10-30)
DX: D25.9 Leiomyoma of uterus, unspecified (principal); E44.0 Moderate protein-calorie malnutrition; D69.6 Thrombocytopenia, unspecified; E87.8 Other disorders of electrolyte and fluid balance, not elsewhere classified; R74.01 Elevation of levels of liver transaminase levels; Z88.8 Allergy status to other drugs, medicaments and biological substances; Z53.29 Procedure and treatment not carried out because of patient's decision for other reasons; Z68.22 Body mass index [BMI] 22.0-22.9, adult; D50.0 Iron deficiency anemia secondary to blood loss (chronic)
CPT/HCPCS: 36415; 76700; 76830; 76856; 80048; 80053; 84702; 85025; 86850; 86870; 86900; 86920; 99291; P9016

== ENCOUNTER 2021-11-16 21:04 | Emergency (ER) | payer OTHER ==
[~2021-11-16] VITALS: Ht 170.2 cm; Wt 61.0 kg
[2021-11-16] MEDS ORDERED: MORPHINE SULFATE 4 MG/ML CPJ (NOT FOR IM USE) IV STA (23:15)
[2021-11-16] MEDS ORDERED: ONDANSETRON HCL 4MG/2ML INJ IV STA (23:15)
[2021-11-16] MEDS ORDERED: SODIUM CHLORIDE 0.9% 1,000 ML IV ONE (23:15)
[2021-11-16 23:34] LABS: HEMATOCRIT. 25.5 % (36.0-48.0); HEMOGLOBIN. 7.8 g/dL (12.0-16.0); MEAN CORPUSCULAR HEMOGLOBIN 25.7 pg (28.0-32.0); MEAN CORPUSCULAR VOLUME 83.7 fL (81.0-99.0); MEAN PLATELET VOLUME 7.2 fl (7.4-10.4); PLATELET 392 x1000/uL (130-400); RED BLOOD CELL COUNT 3.05 mill/uL (4.2-5.4)
[2021-11-16 23:38] LABS: CHLORIDE 108 mEq/L (98-107)
[2021-11-16 23:47] LABS: ETHANOL BLOOD 216 mg/dL
[2021-11-17 00:42] LABS: PLATELET ESTIMATE NORMAL
[2021-11-17 01:10] VITALS: BP 114/71
[2021-11-17] MEDS ORDERED: IOHEXOL-300 100 ML BOTTLE ONE (06:04)
== END 2021-11-17 02:00 | disposition home or self-care (01) ==
LOC: ER 21:04
DX: K80.80 Other cholelithiasis without obstruction (principal); R10.9 Unspecified abdominal pain; F10.129 Alcohol abuse with intoxication, unspecified; Y90.7 Blood alcohol level of 200-239 mg/100 ml; D64.9 Anemia, unspecified; F17.210 Nicotine dependence, cigarettes, uncomplicated; Z88.6 Allergy status to analgesic agent; Z71.6 Tobacco abuse counseling
CPT/HCPCS: 36415; 74177; 80053; 80320; 83690; 85025; 93005; 96361; 96374; 96375; 99291; 99406; J2270; J2405; J7030; Q9967; G0480

== ENCOUNTER 2021-12-25 13:34 | Inpatient (IN) | payer MEDICAID, OTHER ==
[~2021-12-25] VITALS: Ht 165.1 cm; Wt 64.9 kg
[2021-12-25 18:32] LABS: CHLORIDE 105 mEq/L (98-107)
[2021-12-25 18:36] LABS: HCG SCREEN NEGATIVE
[2021-12-25 18:44] LABS: B-HCG QUANTITATIVE < 1 mIU/mL (<3)
[2021-12-25 19:18] LABS: BASOPHILS % 2.2 % (0.0-2.0); EOSINOPHILS % 1.7 % (0.0-5.0); LYMPHOCYTES % 37.5 % (20.0-50.0); MEAN CORPUSCULAR HEMOGLOBIN 23.9 pg (28.0-32.0); MEAN CORPUSCULAR VOLUME 79.8 fL (81.0-99.0); MEAN PLATELET VOLUME 9.1 fl (7.4-10.4); MONOCYTES % 10.8 % (2.0-8.0); NEUTROPHILS % 47.8 % (40.0-76.0); RED BLOOD CELL COUNT 1.72 mill/uL (4.2-5.4); RED CELL DISTRIBUTION WIDTH 26.2 % (11.6-14.6)
[2021-12-25 19:43] LABS: HEMATOCRIT. 13.8 % (36.0-48.0); HEMOGLOBIN. 4.1 g/dL (12.0-16.0)
[2021-12-25 19:44] LABS: PLATELET 35 x1000/uL (130-400)
[2021-12-25 20:44] LABS: PLATELET ESTIMATE MARKEDLY DECREASED
[2021-12-26] VITALS (7 sets, daily range): BP systolic 110–120; BP diastolic 63–76
[2021-12-26] MEDS ORDERED: ACETAMINOPHEN 325MG TABLET PO PRN (02:30)
[2021-12-26] MEDS ORDERED: DIPHENHYDRAMINE 50MG/ML VIAL IV PRN (02:30)
[2021-12-26] MEDS ORDERED: PANTOPRAZOLE 40MG DR TABLET PO SCH (07:20)
[2021-12-26] MEDS ORDERED: IBUPROFEN 400MG TABLET PO PRN (10:45)
[2021-12-26 12:17] LABS: BASOPHILS % 0.7 % (0.0-2.0); EOSINOPHILS % 0.5 % (0.0-5.0); LYMPHOCYTES % 16.3 % (20.0-50.0); MEAN CORPUSCULAR VOLUME 83.2 fL (81.0-99.0); MEAN PLATELET VOLUME 9.2 fl (7.4-10.4); NEUTROPHILS % 68.5 % (40.0-76.0); RED BLOOD CELL COUNT 2.22 mill/uL (4.2-5.4); RED CELL DISTRIBUTION WIDTH 20.9 % (11.6-14.6)
[2021-12-26 12:19] LABS: INR 1.2; PROTHROMBIN TIME 13.2 sec (9.6-11.0)
[2021-12-26 12:21] LABS: HEMATOCRIT. 18.4 % (36.0-48.0)
[2021-12-26 13:13] LABS: CHLORIDE 106 mEq/L (98-107)
[2021-12-27 14:14] LABS: PLATELET 31 x1000/uL (130-400)
== END 2021-12-26 13:40 | disposition left against medical advice (07) | DRG 663 ==
LOC: ER 13:47 → EDBEDREQ 20:33 → 6WST 20:33 → ENRESERV 20:42
PROVIDERS: ADMIT Internal Medicine; ATTEND Internal Medicine
PROC: 30233N1 Transfusion of Nonautologous Red Blood Cells into Peripheral Vein, Percutaneous Approach (ICD-10-PCS; principal; 2021-12-26)
PROC: 30233N1 Transfusion of Nonautologous Red Blood Cells into Peripheral Vein, Percutaneous Approach (ICD-10-PCS; 2021-12-26)
DX: D62 Acute posthemorrhagic anemia (principal); D69.6 Thrombocytopenia, unspecified; D25.9 Leiomyoma of uterus, unspecified; N93.9 Abnormal uterine and vaginal bleeding, unspecified; Z88.8 Allergy status to other drugs, medicaments and biological substances; Z53.29 Procedure and treatment not carried out because of patient's decision for other reasons
CPT/HCPCS: 36415; 76856; 80053; 84702; 84703; 85025; 85384; 86850; 86870; 86900; 86920; 99285; P9016

== ENCOUNTER 2022-01-07 01:36 | Emergency (ER) | payer OTHER ==
[~2022-01-07] VITALS: Ht 167.6 cm; Wt 68.0 kg
[2022-01-07] MEDS ORDERED: MORPHINE SULFATE 4 MG/ML CPJ (NOT FOR IM USE) IV STA (05:45)
[2022-01-07 06:31] LABS: BASOPHILS % 0.7 % (0.0-2.0); HEMATOCRIT. 21.2 % (36.0-48.0); LYMPHOCYTES % 20.9 % (20.0-50.0); MEAN CORPUSCULAR HEMOGLOBIN 28.6 pg (28.0-32.0); MEAN CORPUSCULAR VOLUME 88.7 fL (81.0-99.0); MEAN PLATELET VOLUME 7.1 fl (7.4-10.4); MONOCYTES % 11.1 % (2.0-8.0); NEUTROPHILS % 66.3 % (40.0-76.0); PLATELET 604 x1000/uL (130-400); RED BLOOD CELL COUNT 2.39 mill/uL (4.2-5.4); RED CELL DISTRIBUTION WIDTH 18.9 % (11.6-14.6)
[2022-01-07 06:42] LABS: CHLORIDE 112 mEq/L (98-107)
[2022-01-07 06:45] LABS: HCG SCREEN NEGATIVE
[2022-01-07 06:52] LABS: ETHANOL BLOOD 261 mg/dL
[2022-01-07 07:12] LABS: HEMOGLOBIN. 6.8 g/dL (12.0-16.0)
[2022-01-07] MEDS ORDERED: SODIUM CHLORIDE 0.9% 1,000 ML IV ONE (09:00)
[2022-01-07 12:48] VITALS: BP 103/71
== END 2022-01-07 14:02 | disposition short-term general hospital (02) ==
LOC: ER 01:36 → CANBEDREQ 20:01
DX: K80.50 Calculus of bile duct without cholangitis or cholecystitis without obstruction (principal); D64.9 Anemia, unspecified; Z88.5 Allergy status to narcotic agent; Z20.822 Contact with and (suspected) exposure to COVID-19
CPT/HCPCS: 36415; 76705; 80053; 80320; 83690; 84703; 85025; 86850; 86870; 86900; 86901; 86920; 87426; 96360; 96361; 99291; C9803; J7030; G0480

== ENCOUNTER 2022-02-08 18:27 | Inpatient (IN) | payer OTHER ==
[~2022-02-08] VITALS: Ht 165.1 cm; Wt 74.8 kg
[2022-02-08] MEDS ORDERED: SODIUM CHLORIDE 0.9% 1,000 ML IV ONE (19:30)
[2022-02-08 20:33] LABS: BASOPHILS % 0.5 % (0.0-2.0); EOSINOPHILS % 0.1 % (0.0-5.0); LYMPHOCYTES % 16.8 % (20.0-50.0); MEAN CORPUSCULAR HEMOGLOBIN 29.2 pg (28.0-32.0); MEAN CORPUSCULAR VOLUME 90.6 fL (81.0-99.0); MEAN PLATELET VOLUME 8.2 fl (7.4-10.4); NEUTROPHILS % 69.6 % (40.0-76.0); PLATELET 216 x1000/uL (130-400); RED BLOOD CELL COUNT 2.17 mill/uL (4.2-5.4); RED CELL DISTRIBUTION WIDTH 19.3 % (11.6-14.6)
[2022-02-08 20:42] LABS: INR 1.9; PROTHROMBIN TIME 19.2 sec (9.6-11.0)
[2022-02-08 20:44] LABS: HEMATOCRIT. 19.6 % (36.0-48.0); HEMOGLOBIN. 6.3 g/dL (12.0-16.0)
[2022-02-08] MEDS ORDERED: MORPHINE SULFATE 4 MG/ML CPJ (NOT FOR IM USE) IV ONE (20:45)
[2022-02-08 20:52] LABS: CHLORIDE 110 mEq/L (98-107)
[2022-02-08 21:01] LABS: ETHANOL BLOOD 181 mg/dL
[2022-02-08 21:03] LABS: HCG SCREEN NEGATIVE
[2022-02-09] VITALS (12 sets, daily range): BP systolic 95–128; BP diastolic 48–72
[2022-02-09 01:53] LABS: CLARITY URINE TURBID (CLEAR); COLOR URINE DARK YELLOW (YELLOW); KETONES URINE NEGATIVE (NEGATIVE); LEUKOCYTE ESTERASE URINE 2+ (NEGATIVE); NITRITE URINE POSITIVE (NEGATIVE); OCCULT BLOOD URINE 3+ (NEGATIVE); PROTEIN URINE 1+ (NEGATIVE); SPECIFIC GRAVITY URINE 1.019 (1.005-1.030)
[2022-02-09] MEDS ORDERED: FOLI-43 PO (02:20)
[2022-02-09] MEDS ORDERED: HYDR-3735 PO (02:20)
[2022-02-09] MEDS ORDERED: OMEP20CA14 PO (02:20)
[2022-02-09] MEDS ORDERED: FERR-63 PO (02:20)
[2022-02-09] MEDS ORDERED: DOCU250C14 PO (02:20)
[2022-02-09] MEDS: PANTOPRAZOLE 40MG DR TABLET PO SCH (09:34)
[2022-02-09] MEDS ORDERED: CEFTRIAXONE 1 G PREMIX 50 ML IV SCH (14:00)
[2022-02-09] MEDS ORDERED: SODIUM CHLORIDE 0.9% 1,000 ML IV ONE (14:00)
[2022-02-09 14:38] LABS: HEMATOCRIT. 22.9 % (36.0-48.0); HEMOGLOBIN. 7.7 g/dL (12.0-16.0); MEAN CORPUSCULAR HEMOGLOBIN 30.4 pg (28.0-32.0); MEAN CORPUSCULAR VOLUME 89.8 fL (81.0-99.0); MEAN PLATELET VOLUME 8.2 fl (7.4-10.4); PLATELET 191 x1000/uL (130-400); RED BLOOD CELL COUNT 2.55 mill/uL (4.2-5.4); RED CELL DISTRIBUTION WIDTH 18.3 % (11.6-14.6)
[2022-02-09 15:16] LABS: CHLORIDE 109 mEq/L (98-107)
[2022-02-09 15:46] LABS: VITAMIN B12 SERUM >2000 pg/mL pg/mL (211-911)
[2022-02-09] MEDS: CEFTRIAXONE 1,000 MG in DEXTROSE 5% WATER 50 ML IV SCH (15:59)
[2022-02-09 18:13] LABS: PLATELET ESTIMATE NORMAL
[2022-02-09] MEDS: ACETAMINOPHEN 650MG/20.3ML UDC PO PRN (18:16)
[2022-02-09] MEDS ORDERED: NALOXONE HCL 0.4MG/ML VIAL IV PRN (19:00)
[2022-02-09] MEDS: MORPHINE SULFATE 2 MG/ML CPJ (NOT FOR IM USE) IV PRN (21:41)
[2022-02-09] MEDS ORDERED: TEMAZEPAM 15MG CAPSULE PO PRN (22:00)
[2022-02-10 00:45] VITALS: BP 99/48
[2022-02-10 04:00] VITALS: BP 105/64
[2022-02-10] MEDS: MORPHINE SULFATE 2 MG/ML CPJ (NOT FOR IM USE) IV PRN ×2 (06:14→15:17)
[2022-02-10 07:25] LABS: HEMOGLOBIN 10.3 g/dL (12.0-16.0)
[2022-02-10 08:00] VITALS: BP 143/87
[2022-02-10] MEDS: PANTOPRAZOLE 40MG DR TABLET PO SCH (08:13)
[2022-02-10 12:00] VITALS: BP 111/64
[2022-02-10] MEDS ORDERED: LACTULOSE 20G/30ML UDC PO NR (14:30)
[2022-02-10] MEDS ORDERED: PHYTONADIONE 10MG/ML AMP SUBCUT NR (14:30)
[2022-02-10 14:54] LABS: MEAN CORPUSCULAR HEMOGLOBIN 30.2 pg (28.0-32.0); MEAN CORPUSCULAR VOLUME 90.4 fL (81.0-99.0); MEAN PLATELET VOLUME 8.1 fl (7.4-10.4); PLATELET 157 x1000/uL (130-400); RED BLOOD CELL COUNT 3.32 mill/uL (4.2-5.4); RED CELL DISTRIBUTION WIDTH 17.1 % (11.6-14.6)
[2022-02-10 15:04] LABS: INR 1.7; PROTHROMBIN TIME 17.7 sec (9.6-11.0)
[2022-02-10 15:30] LABS: FERRITIN 30 ng/mL (10-291)
[2022-02-10] MEDS: CEFTRIAXONE 1,000 MG in DEXTROSE 5% WATER 50 ML IV SCH (15:38)
[2022-02-10] MEDS: SODIUM CHLORIDE 0.45% 1,000 ML IV SCH (15:40)
[2022-02-10 16:30] VITALS: BP 148/76
[2022-02-10 18:11] LABS: PLATELET ESTIMATE NORMAL
[2022-02-10 20:27] VITALS: BP 94/56
[2022-02-11] VITALS (8 sets, daily range): BP systolic 97–120; BP diastolic 40–81
[2022-02-11] MEDS: SODIUM CHLORIDE 0.45% 1,000 ML IV SCH ×2 (03:49→20:46)
[2022-02-11] MEDS: PANTOPRAZOLE 40MG DR TABLET PO SCH ×2 (09:00→10:13)
[2022-02-11] MEDS: CEFTRIAXONE 1,000 MG in DEXTROSE 5% WATER 50 ML IV SCH (13:07)
[2022-02-11] MEDS: MORPHINE SULFATE 2 MG/ML CPJ (NOT FOR IM USE) IV PRN (14:59)
[2022-02-11 16:19] LABS: HEMATOCRIT. 30.6 % (36.0-48.0); HEMOGLOBIN. 10.1 g/dL (12.0-16.0); MEAN CORPUSCULAR VOLUME 90.8 fL (81.0-99.0); MEAN PLATELET VOLUME 8.7 fl (7.4-10.4); PLATELET 132 x1000/uL (130-400); RED BLOOD CELL COUNT 3.37 mill/uL (4.2-5.4); RED CELL DISTRIBUTION WIDTH 17.7 % (11.6-14.6)
[2022-02-11 16:24] LABS: INR 1.9; PROTHROMBIN TIME 19.8 sec (9.6-11.0)
[2022-02-11] MEDS: PHYTONADIONE 10MG/ML AMP SUBCUT SCH (17:51)
[2022-02-11 19:19] LABS: PLATELET ESTIMATE NORMAL
[2022-02-11 21:04] LABS: HEMATOCRIT 27.8 % (36.0-48.0); HEMOGLOBIN 9.3 g/dL (12.0-16.0)
[2022-02-11 21:08] LABS: INR 1.8; PROTHROMBIN TIME 18.5 sec (9.6-11.0)
[2022-02-12] VITALS (10 sets, daily range): BP systolic 91–116; BP diastolic 45–75
[2022-02-12 06:20] LABS: HEMATOCRIT. 26.1 % (36.0-48.0); HEMOGLOBIN. 8.9 g/dL (12.0-16.0); MEAN CORPUSCULAR HEMOGLOBIN 30.7 pg (28.0-32.0); MEAN CORPUSCULAR VOLUME 89.9 fL (81.0-99.0); MEAN PLATELET VOLUME 8.6 fl (7.4-10.4); PLATELET 125 x1000/uL (130-400)
[2022-02-12 06:24] LABS: INR 1.9; PROTHROMBIN TIME 19.2 sec (9.6-11.0)
[2022-02-12 06:29] LABS: CHLORIDE 107 mEq/L (98-107)
[2022-02-12] MEDS ORDERED: ALBUMIN HUMAN 25GM/100ML (25%) IV NR (09:00)
[2022-02-12] MEDS: PANTOPRAZOLE 40MG DR TABLET PO SCH (09:56)
[2022-02-12 14:13] LABS: PLATELET ESTIMATE SLIGHTLY DECREASED
[2022-02-12] MEDS: CEFTRIAXONE 1,000 MG in DEXTROSE 5% WATER 50 ML IV SCH (17:53)
[2022-02-12] MEDS: PHYTONADIONE 10MG/ML AMP SUBCUT SCH (17:54)
[2022-02-12] MEDS: SODIUM CHLORIDE 0.45% 1,000 ML IV SCH (17:55)
[2022-02-12 20:51] LABS: HEMOGLOBIN 8.8 g/dL (12.0-16.0)
[2022-02-12 21:01] LABS: INR 1.8; PROTHROMBIN TIME 18.2 sec (9.6-11.0)
[2022-02-12] MEDS: LACTULOSE 20G/30ML UDC PO SCH (21:28)
[2022-02-13] VITALS (10 sets, daily range): BP systolic 98–117; BP diastolic 52–76
[2022-02-13] MEDS: LACTULOSE 20G/30ML UDC PO SCH ×3 (05:42→14:00)
[2022-02-13] MEDS: SODIUM CHLORIDE 0.45% 1,000 ML IV SCH ×2 (05:43→21:27)
[2022-02-13 08:06] LABS: CANCER ANTIGEN 125 80.4 U/mL (0.0-38.1)
[2022-02-13] MEDS: PANTOPRAZOLE 40MG DR TABLET PO SCH (08:06)
[2022-02-13 08:25] LABS: HEMATOCRIT. 30.3 % (36.0-48.0); HEMOGLOBIN. 9.7 g/dL (12.0-16.0); MEAN CORPUSCULAR HEMOGLOBIN 30.4 pg (28.0-32.0); MEAN CORPUSCULAR VOLUME 94.9 fL (81.0-99.0); MEAN PLATELET VOLUME 8.5 fl (7.4-10.4); PLATELET 132 x1000/uL (130-400); RED BLOOD CELL COUNT 3.19 mill/uL (4.2-5.4); RED CELL DISTRIBUTION WIDTH 18.7 % (11.6-14.6)
[2022-02-13 08:55] LABS: INR 1.6; PROTHROMBIN TIME 16.7 sec (9.6-11.0)
[2022-02-13] MEDS ORDERED: SODIUM BICARBONATE 4% (2.4MEQ) 5ML VIAL IV ONE (10:28)
[2022-02-13] MEDS ORDERED: LIDOCAINE HCL 1% 10 MG/ML 10ML VIAL ONE (10:28)
[2022-02-13] MEDS ORDERED: ALBUMIN HUMAN 25GM/100ML (25%) IV NR (10:45)
[2022-02-13 12:52] LABS: PLATELET ESTIMATE NORMAL
[2022-02-13] MEDS: CEFTRIAXONE 1,000 MG in DEXTROSE 5% WATER 50 ML IV SCH (15:20)
[2022-02-14 00:30] VITALS: BP 100/41
[2022-02-14 04:00] VITALS: BP 130/73
[2022-02-14] MEDS: LACTULOSE 20G/30ML UDC PO SCH ×3 (05:24→22:05)
[2022-02-14 06:14] LABS: INR 1.7; PROTHROMBIN TIME 17.9 sec (9.6-11.0)
[2022-02-14 06:55] LABS: HEMATOCRIT. 27.6 % (36.0-48.0); HEMOGLOBIN. 9.5 g/dL (12.0-16.0); MEAN CORPUSCULAR HEMOGLOBIN 31.6 pg (28.0-32.0); MEAN CORPUSCULAR VOLUME 92.1 fL (81.0-99.0); MEAN PLATELET VOLUME 8.3 fl (7.4-10.4); PLATELET 129 x1000/uL (130-400); RED BLOOD CELL COUNT 2.99 mill/uL (4.2-5.4); RED CELL DISTRIBUTION WIDTH 19.5 % (11.6-14.6)
[2022-02-14 08:00] VITALS: BP 106/72
[2022-02-14] MEDS: MORPHINE SULFATE 2 MG/ML CPJ (NOT FOR IM USE) IV PRN (09:53)
[2022-02-14] MEDS: PANTOPRAZOLE 40MG DR TABLET PO SCH (09:53)
[2022-02-14] MEDS ORDERED: POTASSIUM CHLORIDE 20MEQ TABLET SR PO SCH (10:45)
[2022-02-14 12:00] VITALS: BP 118/76
[2022-02-14] MEDS: CEFTRIAXONE 1,000 MG in DEXTROSE 5% WATER 50 ML IV SCH (14:00)
[2022-02-14 14:28] LABS: PLATELET ESTIMATE NORMAL
[2022-02-14 16:00] VITALS: BP 105/59
[2022-02-14] MEDS: ACETAMINOPHEN 650MG/20.3ML UDC PO PRN (19:00)
[2022-02-14 20:00] VITALS: BP 104/58
[2022-02-14] MEDS: SODIUM CHLORIDE 0.45% 1,000 ML IV SCH (22:05)
[2022-02-14] MEDS ORDERED: MORPHINE SULFATE 2 MG/ML CPJ (NOT FOR IM USE) IV PRN (23:30)
[2022-02-14] MEDS ORDERED: NALOXONE HCL 0.4MG/ML VIAL IV PRN (23:30)
[2022-02-15] VITALS: BP 101/68
[2022-02-15 04:00] VITALS: BP 142/79
[2022-02-15] MEDS: LACTULOSE 20G/30ML UDC PO SCH ×3 (05:42→22:11)
[2022-02-15 06:44] LABS: INR 1.7; PROTHROMBIN TIME 17.7 sec (9.6-11.0)
[2022-02-15 06:52] LABS: BASOPHILS % 0.5 % (0.0-2.0); EOSINOPHILS % 0.2 % (0.0-5.0); HEMATOCRIT. 28.6 % (36.0-48.0); HEMOGLOBIN. 9.5 g/dL (12.0-16.0); MEAN CORPUSCULAR HEMOGLOBIN 31.6 pg (28.0-32.0); MEAN CORPUSCULAR VOLUME 95.4 fL (81.0-99.0); MEAN PLATELET VOLUME 8.7 fl (7.4-10.4); MONOCYTES % 11.8 % (2.0-8.0); NEUTROPHILS % 74.5 % (40.0-76.0); PLATELET 132 x1000/uL (130-400)
[2022-02-15 07:26] LABS: CHLORIDE 110 mEq/L (98-107)
[2022-02-15] MEDS: SODIUM CHLORIDE 0.45% 1,000 ML IV SCH (08:25)
[2022-02-15] MEDS ORDERED: POTASSIUM CHLORIDE 20MEQ/PACKET PO NR (10:00)
[2022-02-15] MEDS: PANTOPRAZOLE 40MG DR TABLET PO SCH (10:10)
[2022-02-15 12:00] VITALS: BP 107/71
[2022-02-15 16:00] VITALS: BP 108/64
[2022-02-15 20:00] VITALS: BP 162/107
[2022-02-15] MEDS: HYDROCODONE/ACETAMINOPHEN 5/325MG TABLET PO PRN (22:19)
[2022-02-16] VITALS: BP 110/67
[2022-02-16] MEDS: SODIUM CHLORIDE 0.45% 1,000 ML IV SCH ×2 (01:05→16:51)
[2022-02-16 04:00] VITALS: BP 127/78
[2022-02-16] MEDS: LACTULOSE 20G/30ML UDC PO SCH ×3 (05:24→22:42)
[2022-02-16 06:38] LABS: INR 1.6; PROTHROMBIN TIME 16.8 sec (9.6-11.0)
[2022-02-16 06:50] LABS: HEMATOCRIT. 24.3 % (36.0-48.0); HEMOGLOBIN. 8.2 g/dL (12.0-16.0); MEAN CORPUSCULAR HEMOGLOBIN 31.4 pg (28.0-32.0); MEAN CORPUSCULAR VOLUME 93.5 fL (81.0-99.0); MEAN PLATELET VOLUME 8.9 fl (7.4-10.4); PLATELET 151 x1000/uL (130-400); RED CELL DISTRIBUTION WIDTH 20.5 % (11.6-14.6)
[2022-02-16 08:00] VITALS: BP 99/53
[2022-02-16] MEDS: PANTOPRAZOLE 40MG DR TABLET PO SCH (09:04)
[2022-02-16 09:25] LABS: PLATELET ESTIMATE NORMAL
[2022-02-16] MEDS ORDERED: POTASSIUM CHLORIDE 20MEQ TABLET SR PO NR (09:30)
[2022-02-16 12:00] VITALS: BP 94/59
[2022-02-16] MEDS: ACETAMINOPHEN 650MG/20.3ML UDC PO PRN (14:08)
[2022-02-16 16:00] VITALS: BP 108/58
[2022-02-16 20:00] VITALS: BP 144/68
[2022-02-16] MEDS: RIFAXIMIN 550 MG TABLET PO SCH (22:42)
[2022-02-17] VITALS (22 sets, daily range): BP systolic 73–130; BP diastolic 26–72
[2022-02-17] MEDS: PANTOPRAZOLE 80 MG in SODIUM CHLORIDE 0.9% 100 ML IV SCH (00:30)
[2022-02-17] MEDS: LACTULOSE 20G/30ML UDC PO SCH ×3 (07:11→22:00)
[2022-02-17 07:23] LABS: BASOPHILS % 0.4 % (0.0-2.0); EOSINOPHILS % 0.1 % (0.0-5.0); HEMATOCRIT. 23.1 % (36.0-48.0); HEMOGLOBIN. 7.6 g/dL (12.0-16.0); LYMPHOCYTES % 11.7 % (20.0-50.0); MEAN CORPUSCULAR HEMOGLOBIN 30.5 pg (28.0-32.0); MEAN CORPUSCULAR VOLUME 93.4 fL (81.0-99.0); MEAN PLATELET VOLUME 9.4 fl (7.4-10.4); MONOCYTES % 11.7 % (2.0-8.0); NEUTROPHILS % 76.1 % (40.0-76.0); PLATELET 168 x1000/uL (130-400); RED BLOOD CELL COUNT 2.48 mill/uL (4.2-5.4); RED CELL DISTRIBUTION WIDTH 20.9 % (11.6-14.6)
[2022-02-17] MEDS: HYDROCODONE/ACETAMINOPHEN 5/325MG TABLET PO PRN (07:23)
[2022-02-17] MEDS: RIFAXIMIN 550 MG TABLET PO SCH ×2 (09:08→21:00)
[2022-02-17] MEDS: PANTOPRAZOLE 40MG DR TABLET PO SCH (09:08)
[2022-02-17] MEDS: SODIUM CHLORIDE 0.45% 1,000 ML IV SCH (10:25)
[2022-02-17] MEDS ORDERED: PHYTONADIONE 10MG/ML AMP SUBCUT NR (14:00)
[2022-02-17 16:34] LABS: HEMATOCRIT 18.5 % (36.0-48.0); HEMOGLOBIN 5.7 g/dL (12.0-16.0)
[2022-02-17] MEDS ORDERED: NOREPINEPHRINE 8MG/250ML PMX 250 ML IV PRN (22:45)
[2022-02-18] VITALS (64 sets, daily range): BP systolic 51–152; BP diastolic 24–89
[2022-02-18] MEDS: NOREPINEPHRINE 8 MG in DEXTROSE 5% WATER 250 ML IV PRN ×6 (00:30→17:31)
[2022-02-18] MEDS: OCTREOTIDE 1,000 MCG in SODIUM CHLORIDE 0.9% 98 ML IV PRN (00:30)
[2022-02-18] MEDS: SODIUM CHLORIDE 0.45% 1,000 ML IV SCH ×2 (00:30→03:05)
[2022-02-18 01:16] LABS: HEMATOCRIT 25.2 % (36.0-48.0); HEMOGLOBIN 8.1 g/dL (12.0-16.0)
[2022-02-18 05:18] LABS: HEMATOCRIT. 26.1 % (36.0-48.0); HEMOGLOBIN. 8.4 g/dL (12.0-16.0); MEAN CORPUSCULAR HEMOGLOBIN 30.7 pg (28.0-32.0); MEAN CORPUSCULAR VOLUME 95.7 fL (81.0-99.0); MEAN PLATELET VOLUME 9.4 fl (7.4-10.4); PLATELET 304 x1000/uL (130-400); RED BLOOD CELL COUNT 2.72 mill/uL (4.2-5.4); RED CELL DISTRIBUTION WIDTH 17.7 % (11.6-14.6)
[2022-02-18] MEDS: LACTULOSE 20G/30ML UDC PO SCH ×3 (05:22→21:24)
[2022-02-18 05:36] LABS: INR 1.8; PROTHROMBIN TIME 18.8 sec (9.6-11.0)
[2022-02-18] MEDS: ONDANSETRON HCL 4MG/2ML INJ IV PRN (08:21)
[2022-02-18] MEDS ORDERED: MAGNESIUM 1 G PREMIX 100 ML IV SCH (09:00)
[2022-02-18] MEDS: RIFAXIMIN 550 MG TABLET PO SCH ×2 (09:00→21:24)
[2022-02-18] MEDS: PANTOPRAZOLE 40MG DR TABLET PO SCH (09:00)
[2022-02-18] MEDS ORDERED: CEFEPIME 1,000 MG in DEXTROSE 5% WATER 50 ML IV SCH (09:00)
[2022-02-18 09:02] LABS: BG BASE EXCESS -23.4 mmol/L (-2.0-2.0); BG CARBOXYHEMOGLOBIN 1.1 % (0.5-1.5); BG DEOXYHEMOGLOBIN 3.2 % (0.0-5.0); BG FRACTION INSPIRED OXYGEN 26; BG HCO3 ACT 4.4 mmol/L (22.0-26.0); BG METHEMOGLOBIN 1.7 % (0.0-1.5); BG OXYGEN SATURATION 96.7 % (92.0-98.5); BG PH 7.087 (7.350-7.450); BG PO2 116.2 mmHg (75.0-100.0); BG SAMPLE SITE LEFT RADIAL; BG TOTAL HEMOGLOBIN 6.7 g/dL (12.0-18.0); BG VENT MODE NASAL CANNULA
[2022-02-18 09:45] LABS: PLATELET ESTIMATE NORMAL
[2022-02-18] MEDS: PANTOPRAZOLE 80 MG in SODIUM CHLORIDE 0.9% 100 ML IV SCH (09:53)
[2022-02-18 10:27] LABS: HEMATOCRIT 25.5 % (36.0-48.0); HEMOGLOBIN 7.2 g/dL (12.0-16.0)
[2022-02-18] MEDS ORDERED: SODIUM BICARBONATE 8.4% 1 MEQ/ML 50ML SYR IV NR ×2 (10:30→18:00)
[2022-02-18] MEDS ORDERED: LIDOCAINE HCL/PF 1% 10 MG/ML 5ML VIAL ONE (11:41)
[2022-02-18] MEDS: CEFEPIME 1,000 MG in DEXTROSE 5% WATER 50 ML IV SCH (11:57)
[2022-02-18] MEDS ORDERED: HEPARIN 1000 UNITS/ML 10ML ONE (12:32)
[2022-02-18] MEDS: PHENYLEPHRINE 100 MG in DEXT 5% WATER 240 ML IV PRN ×2 (12:44→22:18)
[2022-02-18] MEDS: PANTOPRAZOLE SODIUM 40 MG/VIAL IV SCH (13:00)
[2022-02-18 13:23] LABS: CLARITY URINE TURBID (CLEAR); COLOR URINE DARK YELLOW (YELLOW); KETONES URINE TRACE (NEGATIVE); LEUKOCYTE ESTERASE URINE 1+ (NEGATIVE); NITRITE URINE POSITIVE (NEGATIVE); OCCULT BLOOD URINE TRACE (NEGATIVE); PROTEIN URINE 1+ (NEGATIVE); SPECIFIC GRAVITY URINE 1.025 (1.005-1.030); UROBILINOGEN URINE 0.2 E.U./dL (0.2-1.0)
[2022-02-18] MEDS: SODIUM BICARBONATE 150 MEQ in DEXTROSE 5% WATER 1,000 ML IV SCH ×3 (14:48→20:47)
[2022-02-18] MEDS ORDERED: SODIUM BICARBONATE 8.4% 1 MEQ/ML 50ML SYR IV ONE ×2 (17:43→22:00)
[2022-02-18] MEDS: NOREPINEPHRINE 32 MG in DEXT 5% WATER 218 ML IV PRN (20:00)
[2022-02-18 21:43] LABS: BG BASE EXCESS -20.4 mmol/L (-2.0-2.0); BG CARBOXYHEMOGLOBIN 0.6 % (0.5-1.5); BG DEOXYHEMOGLOBIN 0.3 % (0.0-5.0); BG FRACTION INSPIRED OXYGEN 100; BG METHEMOGLOBIN 0.4 % (0.0-1.5); BG OXYGEN SATURATION 99.7 % (92.0-98.5); BG OXYHEMOGLOBIN 98.7 % (94.0-97.0); BG PCO2 16.4 mmHg (35.0-45.0); BG PH 7.182 (7.350-7.450); BG PO2 452.5 mmHg (75.0-100.0); BG SAMPLE SITE RIGHT RADIAL; BG TOTAL HEMOGLOBIN 7.2 g/dL (12.0-18.0); BG TOTAL RESPIRATORY RATE 28 b/min; BG VENT MODE VENT - AC
[2022-02-18] MEDS: SODIUM BICARBONATE 8.4% 1 MEQ/ML 50ML SYR IV NR (22:00)
[2022-02-19] VITALS (99 sets, daily range): BP systolic 71–146; BP diastolic 19–104
[2022-02-19 00:56] LABS: HEPATITIS B SURFACE ANTIGEN NEGATIVE
[2022-02-19] MEDS: PANTOPRAZOLE SODIUM 40 MG/VIAL IV SCH ×3 (00:59→20:57)
[2022-02-19] MEDS: SODIUM BICARBONATE 8.4% 1 MEQ/ML 50ML SYR IV NR (01:46)
[2022-02-19] MEDS: SODIUM BICARBONATE 8.4% 1 MEQ/ML 50ML SYR IV SCH ×6 (01:49→23:56)
[2022-02-19] MEDS: LACTULOSE 20G/30ML UDC PO SCH ×3 (05:27→20:57)
[2022-02-19] MEDS: ONDANSETRON HCL 4MG/2ML INJ IV PRN (05:28)
[2022-02-19 05:53] LABS: HEMATOCRIT. 25.4 % (36.0-48.0); HEMOGLOBIN. 7.8 g/dL (12.0-16.0); MEAN PLATELET VOLUME 10.4 fl (7.4-10.4); PLATELET 155 x1000/uL (130-400); RED BLOOD CELL COUNT 2.52 mill/uL (4.2-5.4); RED CELL DISTRIBUTION WIDTH 15.8 % (11.6-14.6)
[2022-02-19] MEDS: PHENYLEPHRINE 100 MG in DEXT 5% WATER 240 ML IV PRN ×3 (06:47→20:44)
[2022-02-19 07:34] LABS: BG BASE EXCESS -15.5 mmol/L (-2.0-2.0); BG CARBOXYHEMOGLOBIN 0.4 % (0.5-1.5); BG DEOXYHEMOGLOBIN 2.4 % (0.0-5.0); BG HCO3 ACT 9.3 mmol/L (22.0-26.0); BG METHEMOGLOBIN 0.1 % (0.0-1.5); BG OXYGEN SATURATION 97.6 % (92.0-98.5); BG OXYHEMOGLOBIN 97.1 % (94.0-97.0); BG PCO2 18.9 mmHg (35.0-45.0); BG PH 7.308 (7.350-7.450); BG SAMPLE SITE RIGHT RADIAL; BG VENT MODE VENT - AC
[2022-02-19] MEDS: NOREPINEPHRINE 32 MG in DEXT 5% WATER 218 ML IV PRN ×3 (08:12→22:46)
[2022-02-19] MEDS: CEFEPIME 1,000 MG in DEXTROSE 5% WATER 50 ML IV SCH (08:12)
[2022-02-19] MEDS: RIFAXIMIN 550 MG TABLET PO SCH ×2 (08:12→20:57)
[2022-02-19] MEDS ORDERED: SODIUM BICARBONATE 8.4% 1 MEQ/ML 50ML SYR IV NR (08:15)
[2022-02-19] MEDS: VASOPRESSIN 20 UNIT in SODIUM CHLORIDE 0.9% 99 ML IV PRN ×3 (08:52→22:47)
[2022-02-19 10:34] LABS: PLATELET ESTIMATE NORMAL
[2022-02-19 12:52] LABS: HEMOGLOBIN 6.2 g/dL (12.0-16.0)
[2022-02-19] MEDS: SODIUM BICARBONATE 150 MEQ in DEXTROSE 5% WATER 1,000 ML IV SCH (16:30)
[2022-02-19] MEDS: OCTREOTIDE 1,000 MCG in SODIUM CHLORIDE 0.9% 98 ML IV PRN (19:33)
[2022-02-19 20:59] LABS: BG BASE EXCESS -14.5 mmol/L (-2.0-2.0); BG CARBOXYHEMOGLOBIN 0.6 % (0.5-1.5); BG DEOXYHEMOGLOBIN 15.6 % (0.0-5.0); BG FRACTION INSPIRED OXYGEN 50; BG HCO3 ACT 11.6 mmol/L (22.0-26.0); BG METHEMOGLOBIN 0.7 % (0.0-1.5); BG OXYGEN SATURATION 84.2 % (92.0-98.5); BG OXYHEMOGLOBIN 83.1 % (94.0-97.0); BG PCO2 28.1 mmHg (35.0-45.0); BG PH 7.235 (7.350-7.450); BG PO2 54.8 mmHg (75.0-100.0); BG SAMPLE SITE RIGHT RADIAL; BG TOTAL HEMOGLOBIN 8.7 g/dL (12.0-18.0); BG VENT MODE VENT - AC
[2022-02-19 21:25] LABS: HEMATOCRIT 25.9 % (36.0-48.0); HEMOGLOBIN 7.9 g/dL (12.0-16.0)
[2022-02-19] MEDS: EPINEPHRINE 10 MG in SODIUM CHLORIDE 0.9% 240 ML IV PRN (23:18)
[2022-02-20] VITALS (37 sets, daily range): BP systolic 61–105; BP diastolic 30–48
[2022-02-20] MEDS: SODIUM BICARBONATE 150 MEQ in DEXTROSE 5% WATER 1,000 ML IV SCH (00:46)
[2022-02-20] MEDS: EPINEPHRINE 10 MG in SODIUM CHLORIDE 0.9% 240 ML IV PRN ×5 (01:45→09:08)
[2022-02-20] MEDS: PHENYLEPHRINE 100 MG in DEXT 5% WATER 240 ML IV PRN (03:08)
[2022-02-20 04:09] LABS: MEAN CORPUSCULAR HEMOGLOBIN 30.7 pg (28.0-32.0); MEAN CORPUSCULAR VOLUME 111.8 fL (81.0-99.0); RED BLOOD CELL COUNT 2.06 mill/uL (4.2-5.4); RED CELL DISTRIBUTION WIDTH 17.9 % (11.6-14.6)
[2022-02-20] MEDS: SODIUM BICARBONATE 8.4% 1 MEQ/ML 50ML SYR IV SCH ×2 (04:16→07:21)
[2022-02-20 04:24] LABS: HEMOGLOBIN. 6.3 g/dL (12.0-16.0)
[2022-02-20] MEDS: NOREPINEPHRINE 32 MG in DEXT 5% WATER 218 ML IV PRN ×2 (05:29→09:07)
[2022-02-20] MEDS: LACTULOSE 20G/30ML UDC PO SCH (05:39)
[2022-02-20] MEDS: DEXTROSE 50% WATER 50ML SYRINGE IV PRN ×2 (06:19→07:21)
[2022-02-20] MEDS ORDERED: DEXTROSE 50% WATER 50ML SYRINGE IV PRN (07:00)
[2022-02-20 08:34] LABS: BG HCO3 ACT 12.7 mmol/L (22.0-26.0); BG PCO2 43.1 mmHg (35.0-45.0); BG PH 7.087 (7.350-7.450); BG PO2 67.3 mmHg (75.0-100.0); BG SAMPLE SITE RIGHT RADIAL; BG TOTAL HEMOGLOBIN < 4.5 g/dL (12.0-18.0); BG VENT MODE VENT - AC
[2022-02-20] MEDS: VASOPRESSIN 20 UNIT in SODIUM CHLORIDE 0.9% 99 ML IV PRN (09:08)
[2022-02-20] MEDS: RIFAXIMIN 550 MG TABLET PO SCH (09:12)
[2022-02-20] MEDS: CEFEPIME 1,000 MG in DEXTROSE 5% WATER 50 ML IV SCH (09:12)
[2022-02-20] MEDS: PANTOPRAZOLE SODIUM 40 MG/VIAL IV SCH (09:12)
[2022-02-20 10:45] LABS: NUCLEATED RED BLOOD CELLS 8 /100 WBC; PLATELET ESTIMATE NORMAL
[2022-02-20 10:47] LABS: PLATELET 144 x1000/uL (130-400)
[2022-02-20 21:59] LABS: HEMOGLOBIN 9.8 g/dL (12.0-16.0)
== END 2022-02-20 16:47 | DRG 720 ==
LOC: ER 18:27 → MICUSO 21:13 → 7WST 02-09 02:00 → MICUNO 02-17 21:15
PROVIDERS: ADMIT Internal Medicine; ATTEND Internal Medicine
PROC: 30233N1 Transfusion of Nonautologous Red Blood Cells into Peripheral Vein, Percutaneous Approach (ICD-10-PCS; 2022-02-08)
PROC: 30233K1 Transfusion of Nonautologous Frozen Plasma into Peripheral Vein, Percutaneous Approach (ICD-10-PCS; 2022-02-11)
PROC: 0W9G3ZZ Drainage of Peritoneal Cavity, Percutaneous Approach (ICD-10-PCS; principal; 2022-02-13)
PROC: 5A1945Z Respiratory Ventilation, 24-96 Consecutive Hours (ICD-10-PCS; 2022-02-18)
PROC: 05HM33Z Insertion of Infusion Device into Right Internal Jugular Vein, Percutaneous Approach (ICD-10-PCS; 2022-02-18)
PROC: B543ZZA Ultrasonography of Right Jugular Veins, Guidance (ICD-10-PCS; 2022-02-18)
PROC: 0BH17EZ Insertion of Endotracheal Airway into Trachea, Via Natural or Artificial Opening (ICD-10-PCS; 2022-02-18)
PROC: 5A1D70Z Performance of Urinary Filtration, Intermittent, Less than 6 Hours Per Day (ICD-10-PCS; 2022-02-18)
PROC: 02HV33Z Insertion of Infusion Device into Superior Vena Cava, Percutaneous Approach (ICD-10-PCS; 2022-02-19)
PROC: B548ZZA Ultrasonography of Superior Vena Cava, Guidance (ICD-10-PCS; 2022-02-19)
PROC: 5A12012 Performance of Cardiac Output, Single, Manual (ICD-10-PCS; 2022-02-20)
DX: A41.9 Sepsis, unspecified organism (principal); J96.00 Acute respiratory failure, unspecified whether with hypoxia or hypercapnia; G93.41 Metabolic encephalopathy; E43 Unspecified severe protein-calorie malnutrition; R65.21 Severe sepsis with septic shock; R57.8 Other shock; K86.2 Cyst of pancreas; E72.20 Disorder of urea cycle metabolism, unspecified; K76.82 Hepatic encephalopathy; D68.9 Coagulation defect, unspecified; I46.9 Cardiac arrest, cause unspecified; D62 Acute posthemorrhagic anemia; R34 Anuria and oliguria; Z20.822 Contact with and (suspected) exposure to COVID-19; K70.11 Alcoholic hepatitis with ascites; R16.0 Hepatomegaly, not elsewhere classified; K72.90 Hepatic failure, unspecified without coma; N17.9 Acute kidney failure, unspecified; K92.2 Gastrointestinal hemorrhage, unspecified; N92.1 Excessive and frequent menstruation with irregular cycle; D25.9 Leiomyoma of uterus, unspecified; K74.60 Unspecified cirrhosis of liver; K80.20 Calculus of gallbladder without cholecystitis without obstruction; N39.0 Urinary tract infection, site not specified; I10 Essential (primary) hypertension; R74.01 Elevation of levels of liver transaminase levels; F10.20 Alcohol dependence, uncomplicated; Y90.6 Blood alcohol level of 120-199 mg/100 ml; Z88.5 Allergy status to narcotic agent; Z68.27 Body mass index [BMI] 27.0-27.9, adult; Z90.710 Acquired absence of both cervix and uterus; Z91.199 Patient's noncompliance with other medical treatment and regimen due to unspecified reason
CPT/HCPCS: 31500; 36415; 36556; 36573; 36600; 49083; 71045; 74176; 74181; 76700; 76830; 76856; 76937; 80048; 80053; 80076; 80320; 81003; 82040; 82105; 82140; 82248; 82375; 82607; 82728; 82746; 82805; 82962; 83540; 83550; 83605; 83615; 83735; 84300; 84703; 85014; 85018; 85025; 85044; 85049; 85384; 86301; 86304; 86705; 86709; 86803; 86850; 86870; 86900; 86920; 86927; 87340; 87426; 88108; 90935; 94002; 94003; 97162; 97166; 99285; A6261; C1725; C1752; C1887; C9113; J0692; J0696; J1644; J2270; J2354; J2370; J2405; J3430; J3475; J3490; J7030; J7050; J7060; J7070; L8514; P9016; P9017; P9047; A4315; A5200; G0480